=== PATIENT | male | born 1940 | race Two or more races ===

== ENCOUNTER 2023-04-05 09:39 | Day surgery (SDC) | payer MEDICARE, BC ==
[~2023-04-05] VITALS: Ht 170.2 cm; Wt 73.0 kg
[~2023-04-05 09:39] MED LIST: ALBU108A5 IN; AMLO1TAB22 PO; APIX2.5T PO; ESZO3TAB54 PO; EZET10TA22 PO; NEBI5TAB2 PO; SIMV10TA20 PO
[2023-04-05] MEDS ORDERED: LIDOCAINE 2%HCL (LOCAL ANESTH.) INJ 20ML MDV ONE (13:58)
[2023-04-05] MEDS ORDERED: IODIXANOL 320MG/ML 100ML BTL IV ONE ×2 (13:58→15:09)
[2023-04-05] MEDS ORDERED: ANGIOMAX 250 MG VIAL IV ONE (14:02)
[2023-04-05] MEDS ORDERED: MIDAZOLAM HCL 2MG/2ML 2ml VIAL (1mg/ml) ONE (14:02)
[2023-04-05] MEDS ORDERED: fentaNYL CITRATE 100 MCG/2 ML VL ONE (14:03)
[2023-04-05] MEDS ORDERED: SODIUM CHL 0.9% 50 ML ONE (14:03)
[2023-04-05] MEDS ORDERED: ATROPINE SULF 1 MG/10ml SYR ONE (15:08)
[2023-04-05] MEDS ORDERED: EPINEPHrine HCL 1 MG/10 ML SYRG ONE (15:09)
[2023-04-05] MEDS ORDERED: hydrALAZINE HCL 20 MG/ML VL ONE (15:25)
[2023-04-05] MEDS ORDERED: ASPirin 325 MG TAB ONE (15:38)
[2023-04-05] MEDS ORDERED: CLOPIDOGREL 300 MG TAB ONE (15:38)
[2023-04-05] MEDS ORDERED: CLOP75TA28 PO (17:41)
== END 2023-04-05 18:25 | disposition home or self-care (01) ==
LOC: CATH 09:39
PROVIDERS: ATTEND Internal Medicine Cardiovascular Disease
DX: I25.10 Atherosclerotic heart disease of native coronary artery without angina pectoris (principal); I35.0 Nonrheumatic aortic (valve) stenosis; I48.91 Unspecified atrial fibrillation; G47.33 Obstructive sleep apnea (adult) (pediatric); E78.5 Hyperlipidemia, unspecified; I11.0 Hypertensive heart disease with heart failure; I50.30 Unspecified diastolic (congestive) heart failure; I27.20 Pulmonary hypertension, unspecified
CPT/HCPCS: 93460; C1725; C1757; C1760; C1769; C1874; C1894; C9600; J0360; J0583; J1644; J2250; J3010; Q9967; 99152